=== PATIENT | male | born 1970 | race African-American/Black ===

== ENCOUNTER 2019-02-25 19:59 | Inpatient (IN) ==
[2019-02-25] MEDS ORDERED: THIAMINE INJ 100 MG, FOLIC ACID INJ 1 MG, MAGNESIUM SULF INJ 2 GM, MULTIVITAMIN INJ 10 ... IV ONE (20:30)
[2019-02-25] MEDS ORDERED: cefTRIAXone 1,000 MG in SODIUM CHLORIDE 0.9% 100 ML IV STA (20:30)
[2019-02-25] MEDS ORDERED: DIPH/TET/ACEL PERT BOOSTER VACCINE 0.5 ML VIAL IM ONE (20:31)
[2019-02-25 20:57] LABS: Basophils % 0.5 % (0.0-0.8); Eosinophils # 0.1 10*3/uL (0.0-0.87); Eosinophils % 1.2 % (0.00-10.9); Hematocrit 44.5 VOL% (42.0-52.0); Hemoglobin 15.4 GM/DL (14.0-18.0); Immature Granulocytes % 0.9 %; Immature Granulocytes Absolute 0.06 #; Lymphocytes # 1.4 10*3/uL (1.4-4.0); Lymphocytes % 20.7 % (21.2-54.2); Mean Corpuscular HGB Conc 34.6 GM/DL (32-36); Mean Corpuscular Volume 88.6 FL (87-102); Mean Platelet Volume 10.1 FL (9.6-12.0); Neutrophils % 67.7 % (38.7-73.9); Platelet Count 206 T/CUMM (130-400); Red Blood Count 5.02 MC/CUMM (3.8-5.5); Red Cell Distribution Width 13.2 % (9.3-17.3); White Blood Count 6.6 T/CUMM (4-12)
[2019-02-25 21:10] LABS: PT Patient Result 10.7 SECS (9.6-12.2); Partial Thromboplastin Time 22.9 SECS (20.8-36.0)
[2019-02-25 21:22] LABS: Alanine Aminotransferase 42 U/L (16-61); Albumin 4.2 G/DL (3.4-5.0); Alkaline Phosphatase 85 U/L (45-117); Aspartate Amino Transferase 45 U/L (0-37); Bilirubin,Total < 0.39 MG/DL (0.2-1.0); Blood Urea Nitrogen 19 MG/DL (7-18); Calcium 8.7 MG/DL (8.5-10.1); Estimated Glom Filtration Rate 60 ML/MIN; Glucose 77 MG/DL (74-106); Osmolality,Calculated 279.4 MOS/KG (273-304); Total Protein 8.1 G/DL (6.4-8.3)
[2019-02-25] MEDS ORDERED: BALANCED SALT IRRIG SOLN 15 ML BOTTLE ONE ×2 (22:16→22:59)
[2019-02-25] MEDS ORDERED: LIDOCAINE 2%/EPI 20 ML VIAL ONE (22:18)
[2019-02-25] MEDS ORDERED: TETRACAINE 0.5% OPH SOLN 4 ML BOTTLE ONE (22:19)
[2019-02-25] MEDS ORDERED: HYALURONATE/CHONDROITIN 1 EACH KIT INTRAOCULR ONE (22:59)
[2019-02-26] MEDS ORDERED: ERYTHROMYCIN 0.5% OPHT OINT 1 GM TUBE ONE ×2 (02:06→02:13)
[2019-02-26] MEDS: PROPOFOL 1,000 MG/100 ML BOTTLE IV SCH ×4 (02:50→10:19)
[2019-02-26] MEDS ORDERED: PROPOFOL 200 MG/20 ML VIAL IV ONE (03:05)
[2019-02-26] MEDS ORDERED: LIDOCAINE 2% 5 ML VIAL ONE (03:05)
[2019-02-26] MEDS ORDERED: SEVOFLURANE 1 UNIT/15 MINUTE INH ONE (03:06)
[2019-02-26] MEDS ORDERED: PHENYLEPHRINE 1 MG/10 ML SYRINGE IV ONE (03:06)
[2019-02-26] MEDS ORDERED: PHENYLEPHRINE DRIP 20 MG/250 ML PREMIX IV ONE (03:06)
[2019-02-26] MEDS ORDERED: fentaNYL 100 MCG/2 ML VIAL ONE (03:06)
[2019-02-26] MEDS ORDERED: MIDAZOLAM 2 MG/2 ML VIAL ONE (03:06)
[2019-02-26] MEDS ORDERED: ROCURONIUM 100 MG/10 ML VIAL IV ONE (03:06)
[2019-02-26] MEDS ORDERED: ONDANSETRON 4 MG/2 ML VIAL ONE (03:06)
[2019-02-26] MEDS ORDERED: LACTATED RINGERS 1,000 ML IV ONE (03:07)
[2019-02-26 03:17] LABS: ABG Base Excess -8.9 MMOL/L (-2.5-2.5); ABG HCO3 17.5 MMOL/L (20-26); ABG Oxygen Saturation 99.6 % (95-100); ABG PCO2 47.7 MM HG (35-48); ABG PH 7.218 (7.35-7.45); Pt O2 Delivery Device Ventilator
[2019-02-26] MEDS ORDERED: ACETAMINOPHEN 325 MG TABLET PO PRN (03:17)
[2019-02-26] MEDS ORDERED: ALBUTEROL 2.5 MG/3 ML NEB RESP TX PRN (03:17)
[2019-02-26] MEDS ORDERED: ONDANSETRON 4 MG/2 ML VIAL IV PRN (03:17)
[2019-02-26] MEDS: SODIUM CHLORIDE 0.9% 1,000 ML IV SCH ×3 (03:25→19:46)
[2019-02-26] MEDS ORDERED: HYDROmorphone 2 MG/1 ML VIAL IV SCH (03:30)
[2019-02-26] MEDS ORDERED: LEVOFLOXACIN INJ 500 MG in PREMIX 1 EACH IV ONE (03:31)
[2019-02-26] MEDS ORDERED: VANCOMYCIN INJ 1,500 MG in SODIUM CHLORIDE 0.9% 250 ML IV SCH (04:00)
[2019-02-26] MEDS ORDERED: VANCOMYCIN INJ 1,500 MG in SODIUM CHLORIDE 0.9% 250 ML IV ONE (04:00)
[2019-02-26] MEDS ORDERED: INFLUENZA VIRUS VACCINE 0.5 ML SYRINGE IM ONE (04:02)
[2019-02-26 04:11] LABS: Basophils % 0.4 % (0.0-0.8); Eosinophils % 0.4 % (0.00-10.9); Hematocrit 41.8 VOL% (42.0-52.0); Hemoglobin 14.1 GM/DL (14.0-18.0); Immature Granulocytes % 0.5 %; Immature Granulocytes Absolute 0.05 #; Lymphocytes # 1.7 10*3/uL (1.4-4.0); Lymphocytes % 16.7 % (21.2-54.2); Mean Corpuscular HGB Conc 33.7 GM/DL (32-36); Mean Corpuscular Volume 91.1 FL (87-102); Mean Platelet Volume 10.3 FL (9.6-12.0); Monocytes % 9.1 % (1.7-12.7); Neutrophils % 72.9 % (38.7-73.9); Platelet Count 213 T/CUMM (130-400); Red Blood Count 4.59 MC/CUMM (3.8-5.5); Red Cell Distribution Width 13.3 % (9.3-17.3); White Blood Count 10.3 T/CUMM (4-12)
[2019-02-26] MEDS ORDERED: LORazepam 2 MG/1 ML VIAL IV PRN (04:23)
[2019-02-26 04:29] LABS: Calcium 8.2 MG/DL (8.5-10.1); Osmolality,Calculated 290.6 MOS/KG (273-304)
[2019-02-26] MEDS: VANCOMYCIN INJ 1,500 MG in SODIUM CHLORIDE 0.9% 500 ML IV SCH ×2 (04:30→17:56)
[2019-02-26] MEDS: LEVOFLOXACIN INJ 500 MG in PREMIX 1 EACH IV SCH (04:34)
[2019-02-26] MEDS ORDERED: HYDROmorphone 2 MG/1 ML VIAL IV PRN (04:58)
[2019-02-26] MEDS ORDERED: hydrALAZINE 20 MG/1 ML VIAL IV PRN (06:24)
[2019-02-26] MEDS ORDERED: MORPHINE 4 MG/1 ML VIAL IV PRN (07:00)
[2019-02-26 07:47] LABS: ABG Base Excess -5.1 MMOL/L (-2.5-2.5); ABG HCO3 21.3 MMOL/L (20-26); ABG Oxygen Saturation 98.8 % (95-100); ABG PCO2 44.6 MM HG (35-48); ABG PH 7.297 (7.35-7.45); ABG PO2 173.6 MM HG (80-95); ABG TCO2 22.7 MMOL/L (23-27); Pt O2 Delivery Device Ventilator
[2019-02-26] MEDS: MULTIVITAMIN LIQUID (CENTRUM) 60 ML BOTTLE PER TUBE SCH (10:12)
[2019-02-26] MEDS: FOLIC ACID 1 MG TABLET PO SCH (10:13)
[2019-02-26] MEDS: ENOXAPARIN 40 MG/0.4 ML SYRINGE SUBCUT SCH (10:13)
[2019-02-26] MEDS: PANTOPRAZOLE 40 MG VIAL IV SCH (10:13)
[2019-02-26] MEDS: THIAMINE 200 MG/2 ML VIAL IV SCH (10:15)
[2019-02-26] MEDS: chlordiazePOXIDE 25 MG CAPSULE PO SCH ×2 (14:21→21:45)
[2019-02-26] MEDS: ERYTHROMYCIN 0.5% OPHT OINT 3.5 GM TUBE LEFT EYE SCH (21:45)
[2019-02-27] MEDS: LEVOFLOXACIN INJ 500 MG in PREMIX 1 EACH IV SCH (03:35)
[2019-02-27] MEDS: SODIUM CHLORIDE 0.9% 1,000 ML IV SCH ×3 (03:35→23:14)
[2019-02-27] MEDS: PROPOFOL 1,000 MG/100 ML BOTTLE IV SCH (03:36)
[2019-02-27] MEDS: VANCOMYCIN INJ 1,500 MG in SODIUM CHLORIDE 0.9% 500 ML IV SCH ×2 (04:50→15:32)
[2019-02-27 05:10] LABS: Osmolality,Calculated 281.3 MOS/KG (273-304)
[2019-02-27 05:36] LABS: Basophils % 0.2 % (0.0-0.8); Eosinophils % 0.6 % (0.00-10.9); Hematocrit 38.1 VOL% (42.0-52.0); Hemoglobin 12.7 GM/DL (14.0-18.0); Immature Granulocytes % 0.3 %; Immature Granulocytes Absolute 0.02 #; Lymphocytes # 0.9 10*3/uL (1.4-4.0); Lymphocytes % 14.6 % (21.2-54.2); Mean Corpuscular HGB Conc 33.3 GM/DL (32-36); Mean Corpuscular Volume 90.5 FL (87-102); Mean Platelet Volume 10.5 FL (9.6-12.0); Monocytes % 15.8 % (1.7-12.7); Neutrophils % 68.5 % (38.7-73.9); Platelet Count 163 T/CUMM (130-400); Red Blood Count 4.21 MC/CUMM (3.8-5.5); Red Cell Distribution Width 13.2 % (9.3-17.3); White Blood Count 6.3 T/CUMM (4-12)
[2019-02-27 05:57] LABS: Band Neutrophils 1 % (0-10); Lymphocytes 13 % (20-55); Segmented Neutrophils 71 % (50-85); Total Cells Counted 100
[2019-02-27 05:58] LABS: Microcytosis Slight
[2019-02-27 05:59] LABS: Platelet Estimate Normal; Stomatocytes Few
[2019-02-27] MEDS: chlordiazePOXIDE 25 MG CAPSULE PO SCH ×3 (06:26→21:19)
[2019-02-27] MEDS: FOLIC ACID 1 MG TABLET PO SCH (08:39)
[2019-02-27] MEDS: ENOXAPARIN 40 MG/0.4 ML SYRINGE SUBCUT SCH (08:39)
[2019-02-27] MEDS: PANTOPRAZOLE 40 MG VIAL IV SCH (08:40)
[2019-02-27] MEDS: MULTIVITAMIN LIQUID (CENTRUM) 60 ML BOTTLE PER TUBE SCH (08:40)
[2019-02-27] MEDS: THIAMINE 200 MG/2 ML VIAL IV SCH (08:42)
[2019-02-27] MEDS: ERYTHROMYCIN 0.5% OPHT OINT 3.5 GM TUBE LEFT EYE SCH ×4 (09:09→21:20)
[2019-02-28] MEDS: LEVOFLOXACIN INJ 500 MG in PREMIX 1 EACH IV SCH (03:59)
[2019-02-28] MEDS: chlordiazePOXIDE 25 MG CAPSULE PO SCH ×3 (04:57→18:08)
[2019-02-28] MEDS: VANCOMYCIN INJ 1,500 MG in SODIUM CHLORIDE 0.9% 500 ML IV SCH ×2 (04:59→17:26)
[2019-02-28 06:14] LABS: Basophils % 0.7 % (0.0-0.8); Eosinophils # 0.1 10*3/uL (0.0-0.87); Eosinophils % 2.7 % (0.00-10.9); Hematocrit 36.4 VOL% (42.0-52.0); Hemoglobin 12.5 GM/DL (14.0-18.0); Lymphocytes # 1.1 10*3/uL (1.4-4.0); Lymphocytes % 27.4 % (21.2-54.2); Mean Corpuscular HGB Conc 34.3 GM/DL (32-36); Mean Corpuscular Volume 90.1 FL (87-102); Mean Platelet Volume 10.1 FL (9.6-12.0); Monocytes % 15.8 % (1.7-12.7); Neutrophils % 53.4 % (38.7-73.9); Platelet Count 147 T/CUMM (130-400); Red Blood Count 4.04 MC/CUMM (3.8-5.5); Red Cell Distribution Width 12.7 % (9.3-17.3); White Blood Count 4.1 T/CUMM (4-12)
[2019-02-28 06:40] LABS: Eosinophils 2 % (0-10); Hypochromasia Slight; Lymphocytes 27 % (20-55); Microcytosis Slight; Platelet Estimate Adequate; Segmented Neutrophils 56 % (50-85); Total Cells Counted 100
[2019-02-28 06:41] LABS: Calcium 8.6 MG/DL (8.5-10.1); Osmolality,Calculated 286.7 MOS/KG (273-304)
[2019-02-28] MEDS: FOLIC ACID 1 MG TABLET PO SCH (08:40)
[2019-02-28] MEDS: ENOXAPARIN 40 MG/0.4 ML SYRINGE SUBCUT SCH (08:40)
[2019-02-28] MEDS: MULTIVITAMIN (CENTRUM) TABLET PO SCH (08:40)
[2019-02-28] MEDS: PANTOPRAZOLE 40 MG TABLET PO SCH (08:40)
[2019-02-28] MEDS: THIAMINE 200 MG/2 ML VIAL IV SCH (08:41)
[2019-02-28] MEDS: ERYTHROMYCIN 0.5% OPHT OINT 3.5 GM TUBE LEFT EYE SCH ×4 (08:45→20:56)
[2019-02-28] MEDS: SODIUM CHLORIDE 0.9% 1,000 ML IV SCH ×3 (08:46→22:28)
[2019-02-28] MEDS: amLODIPine 5 MG TABLET PO SCH (12:07)
[2019-03-01] MEDS: chlordiazePOXIDE 25 MG CAPSULE PO SCH ×2 (01:59→11:36)
[2019-03-01] MEDS: LEVOFLOXACIN INJ 500 MG in PREMIX 1 EACH IV SCH (03:28)
[2019-03-01] MEDS: SODIUM CHLORIDE 0.9% 1,000 ML IV SCH ×2 (03:30→12:11)
[2019-03-01] MEDS: VANCOMYCIN INJ 1,500 MG in SODIUM CHLORIDE 0.9% 500 ML IV SCH (05:05)
[2019-03-01 05:06] LABS: Calcium 8.5 MG/DL (8.5-10.1); Osmolality,Calculated 285.7 MOS/KG (273-304)
[2019-03-01] MEDS: FOLIC ACID 1 MG TABLET PO SCH (09:01)
[2019-03-01] MEDS: amLODIPine 5 MG TABLET PO SCH (09:01)
[2019-03-01] MEDS: MULTIVITAMIN (CENTRUM) TABLET PO SCH (09:01)
[2019-03-01] MEDS: PANTOPRAZOLE 40 MG TABLET PO SCH (09:01)
[2019-03-01] MEDS: ENOXAPARIN 40 MG/0.4 ML SYRINGE SUBCUT SCH (09:01)
[2019-03-01] MEDS: THIAMINE 200 MG/2 ML VIAL IV SCH (09:02)
[2019-03-01] MEDS: ERYTHROMYCIN 0.5% OPHT OINT 3.5 GM TUBE LEFT EYE SCH ×2 (09:11→13:50)
[2019-03-01 12:09] VITALS: BP 143/92
== END 2019-03-01 16:20 | disposition home or self-care (01) | DRG 115 ==
LOC: EDUNIT# → EDBD → N.ED 19:59 → N.ICU 22:51 → SUATTDRO 02-26 03:21 → N.3E 02-27 11:34
PROVIDERS: ADMIT Internal Medicine; ATTEND Internal Medicine